=== PATIENT | female | born 1980 | race Caucasian/White ===

== ENCOUNTER → 2024-01-16 | Day surgery (SDC) | payer OTHER ==
[~2024-01-16] MED LIST: BUPIVACAINE 0.5%/EPI 30 ML SDV INJ ONE; CYMBALTA30 MG; DEXAMETHASONE SOD PHOS 10 MG/1 ML VIAL ONE; DEXAMETHASONE SOD PHOS INJ 4 MG/ML SDV ONE; EPINEPHRINE HCL 1:1000 1ML 1 MG/ML AMP ONE; FENTANYL CITRATE/PF 100MCG/2 ML INJ ONE; GLYCOPYRROLATE INJ 0.2 MG/ML VIAL ONE; LIDOCAINE HCL 2% LOCAL INJ 5 ML SDV VIAL INJ ONE; MECLIZINE HCL12.5 MG PO; METFORMIN HCL500 MG PO; METOPROLOL SUCC25 MG PO; MIDAZOLAM HCL 2 MG/2 ML VIAL ONE; NEOSTIGMINE 1 MG/ML 10ML VIAL ONE; ONDANSETRON HCL INJ 2MG/ML 2ML 2 MG/ML VIAL ONE; OXYMETAZOLINE HCL 0.05% NAS 1 SPRAY BTL ONE; PROPOFOL IV EMULSION 10 MG/ML 20 ML VIAL ONE; ROCURONIUM BROMIDE 10 MG/ML 5ML VIAL IV ONE; ROSUVASTATIN CA40 MG PO; SUGAMMADEX SODIUM 200 MG/2 ML VIAL IV ONE
[2024-01-16] MEDS: LACTATED RINGER'S 1,000 ML ONE (06:37)
[2024-01-16 09:55] VITALS: BP 124/79; PULSE 71; RESP 18; O2SAT 95
== END | disposition home or self-care (01) ==
LOC: EDSEX 05:46 → OR 05:46
PROVIDERS: ATTEND Otolaryngology Otolaryngology/Facial Plastic Surgery
DX: J35.9 Chronic disease of tonsils and adenoids, unspecified (principal); J35.1 Hypertrophy of tonsils; H92.02 Otalgia, left ear; G47.33 Obstructive sleep apnea (adult) (pediatric); E11.9 Type 2 diabetes mellitus without complications; E78.5 Hyperlipidemia, unspecified; F41.9 Anxiety disorder, unspecified; F17.210 Nicotine dependence, cigarettes, uncomplicated; Z88.1 Allergy status to other antibiotic agents; Z79.84 Long term (current) use of oral hypoglycemic drugs; Z79.899 Other long term (current) drug therapy
CPT/HCPCS: 31526; 31622; 36415; 42826; 43191; 82948; 88304; J1100; J2001; J2250; J2405; J2704; J2710; J3010; J7121; J0171

== ENCOUNTER → 2024-04-02 | Day surgery (SDC) | payer OTHER ==
[~2024-04-02] MED LIST changes: -BUPIVACAINE 0.5%/EPI 30 ML SDV INJ ONE; -DEXAMETHASONE SOD PHOS 10 MG/1 ML VIAL ONE; -DEXAMETHASONE SOD PHOS INJ 4 MG/ML SDV ONE; -FENTANYL CITRATE/PF 100MCG/2 ML INJ ONE; -GLYCOPYRROLATE INJ 0.2 MG/ML VIAL ONE; +LIDOCAINE 1% W/EPINEPHRINE 20 ML VIAL ONE; -LIDOCAINE HCL 2% LOCAL INJ 5 ML SDV VIAL INJ ONE; -MIDAZOLAM HCL 2 MG/2 ML VIAL ONE; -NEOSTIGMINE 1 MG/ML 10ML VIAL ONE; +OFLOXACIN 0.3% (OTIC SOL) 5 ML BTL ONE; -ONDANSETRON HCL INJ 2MG/ML 2ML 2 MG/ML VIAL ONE; -PROPOFOL IV EMULSION 10 MG/ML 20 ML VIAL ONE; -ROCURONIUM BROMIDE 10 MG/ML 5ML VIAL IV ONE; -SUGAMMADEX SODIUM 200 MG/2 ML VIAL IV ONE
[2024-04-02] MEDS: LACTATED RINGER'S 1,000 ML ONE (06:32)
[2024-04-02 10:56] VITALS: TEMP 99.1
[2024-04-02 11:55] VITALS: BP 127/72; PULSE 83; RESP 16; O2SAT 97
== END | disposition home or self-care (01) ==
LOC: OR 05:57
PROVIDERS: ATTEND Otolaryngology Otolaryngology/Facial Plastic Surgery
DX: J35.01 Chronic tonsillitis (principal); H69.83 Other specified disorders of Eustachian tube, bilateral; K14.8 Other diseases of tongue; G47.33 Obstructive sleep apnea (adult) (pediatric); E11.9 Type 2 diabetes mellitus without complications; E78.5 Hyperlipidemia, unspecified; E66.9 Obesity, unspecified; F41.9 Anxiety disorder, unspecified; F17.210 Nicotine dependence, cigarettes, uncomplicated; Z01.810 Encounter for preprocedural cardiovascular examination; Z79.84 Long term (current) use of oral hypoglycemic drugs; Z79.899 Other long term (current) drug therapy
CPT/HCPCS: 31535; 31540; 42826; 69436; 71046; 88304; 88305; 88342; 93005; J7121; J0171